=== PATIENT | female | born 1950 | race Caucasian/White ===

== ENCOUNTER 2024-08-07 16:48 | Emergency (ER) | payer OTHER ==
[~2024-08-07] VITALS: Ht 160 cm; Wt 74.4 kg
[2024-08-07 16:49] VITALS: BP 163/100; PULSE 97; RESP 14; TEMP 97.9
[2024-08-07] MEDS ORDERED: dexaMETHasone SOD PHOSPHATE 4 MG/ML 1ML VIAL IM ONE (18:00)
[2024-08-07] MEDS ORDERED: CYCLOBENZAPRINE HCL 10 MG TABLET PO ONE (18:00)
[2024-08-07] MEDS ORDERED: HYDROcodone/APAP 5/325 1 TAB TABLET PO ONE (18:00)
[2024-08-07] MEDS: Solu-medROL 125MG VIAL IVP ONE (18:58)
[2024-08-07] MEDS: LACTULOSE 20 GM/30 ML UDCUP PO ONE (18:58)
[2024-08-07] MEDS: ketOROlac 30MG VIAL (30MG/ML) IVP ONE (18:59)
[2024-08-07] MEDS: CYCLOBENZAPRINE HCL 10 MG TABLET PO ONE (18:59)
[2024-08-07] MEDS ORDERED: ACET-2079 PO (20:19)
[2024-08-07] MEDS ORDERED: METH4TAB3 PO (20:19)
[2024-08-07] MEDS ORDERED: CYCL10TA16 PO (20:19)
== END 2024-08-07 20:40 | disposition home or self-care (01) ==
LOC: EDH 16:48
DX: M54.2 Cervicalgia (principal); M54.6 Pain in thoracic spine; R20.0 Anesthesia of skin; S32.028A Other fracture of second lumbar vertebra, initial encounter for closed fracture; R20.2 Paresthesia of skin; E78.00 Pure hypercholesterolemia, unspecified; I10 Essential (primary) hypertension; E03.9 Hypothyroidism, unspecified; Z90.710 Acquired absence of both cervix and uterus; Z90.89 Acquired absence of other organs; Z98.890 Other specified postprocedural states; W20.8XXA Other cause of strike by thrown, projected or falling object, initial encounter; Y93.89 Activity, other specified; Y92.89 Other specified places as the place of occurrence of the external cause; Y99.8 Other external cause status
CPT/HCPCS: 99285; 96374; 72125; 96375; 72100; 72072; J2919; J1885